=== PATIENT | female | born 1990 | race Caucasian/White ===

== ENCOUNTER 2024-09-10 23:45 | Emergency (ER) | payer BC ==
[2024-09-10] MEDS ORDERED: Lidocaine 2% 20 ML MDV INFILT ONE (23:46)
[2024-09-10 23:55] VITALS: BP 115/78; PULSE 111
== END 2024-09-11 01:00 | disposition home or self-care (01) ==
LOC: FB.ED 23:45
DX: S09.90XA Unspecified injury of head, initial encounter (principal); Z91.013 Allergy to seafood; Z79.899 Other long term (current) drug therapy; Z90.49 Acquired absence of other specified parts of digestive tract; W22.09XA Striking against other stationary object, initial encounter; Y93.41 Activity, dancing
CPT/HCPCS: 12002; 70450; 99283; J2003